=== PATIENT | female | born 1955 | race Caucasian/White ===

== ENCOUNTER → 2024-03-06 | Outpatient (CLI) | payer MEDICARE, OTHER ==
--- NOTE | 2024-03-09 10:24 | CT ---
EXAMINATION TYPE: CT cervical spine wo con DATE OF EXAM: 03/06/2024 COMPARISON: None HISTORY: NECK PAIN CT DLP: 511.9 mGycm CONTRAST: None CT of the cervical spine is performed in the axial plane at 2 mm thick sections. Reconstructed image s in the coronal, and sagittal plane are reviewed on the computer. No acute fractures are evident. Vertebral body alignment is normal. There is disc space narrowing C5-6. Remaining disc heights are preserved. Vertebral body heights are preserved. No spinal canal stenosis is evident Uncovertebral joint hypertrophy is present. This is contributing to moderate bilateral C5-6 foraminal stenosis. Some mild to moderate left foraminal stenosis at C4-5 is present. Mild foraminal narrowing may be present of C3-4. IMPRESSION: 1. No acute osseous abnormality. 2. Foraminal narrowing C5-6 with milder left foraminal narrowing at C3-4 and C4-5. 3. Degenerative disc changes C5-6.
--- NOTE | 2024-03-09 10:31 | CT ---
EXAMINATION TYPE: CT lumbar spine wo con DATE OF EXAM: 03/06/2024 COMPARISON: None HISTORY: LB PAIN CT DLP: 948.6 mGycm CONTRAST: None TECHNIQUE: CT of the lumbar spine is performed on a spiral scan at 3 mm thick sections. Reconstructed images are performed in the coronal and sagittal planes. FINDINGS: Multilevel compression deformities are present. This is greatest at L5 with approximately 7 0% loss of vertebral body height. No posterior wall displacement is evident. Superior endplate compre ssion of approximately 20% of L4 is present. Slightly greater superior endplate compression deformity at L3 has approximately 30% loss of vertebral body height. There is degenerative disc change with vacuum disc phenomenon L2-3 L1-2 T12-L1 and T11-12. T12-L1: No focal disc herniation or significant disc bulge is evident. No spinal canal stenosis or neural foraminal stenosis is present. L1-L2: No focal disc herniation or significant disc bulge is evident. No spinal canal stenosis or n eural foraminal stenosis is present L2-L3: Disc bulge has mild anterior thecal sac compression. Facet hypertrophy and ligamentum flavum l axity is present contributing to some spinal canal narrowing. L3-L4: Mild disc bulges anterior thecal sac contact. Marked facet hypertrophy is contributing to spin al canal stenosis. L4-L5: Facet hypertrophy is present contributing to some mild spinal canal narrowing. Spinal canal na rrowing is present from facet hypertrophy. Bilateral foraminal narrowing is present slightly greater on the left. L5-S1: No focal disc herniation or significant disc bulge is evident. No spinal canal stenosis or n eural foraminal stenosis is present Vertebral alignment appears normal. IMPRESSION: Multilevel compression deformities. No posterior wall displacement is evident. 2. Marked facet hypertrophy present L3-4 and to a lesser degree L4-5. These are contributing to spina l canal stenosis at these levels. 3. Moderate bilateral foraminal stenosis slightly greater on the left at L4-5.
--- NOTE | 2024-03-09 11:18 | MR ---
EXAMINATION TYPE: MR gloria/jacqueline wo con DATE OF EXAM: 03/06/2024 COMPARISON: CT 03/06/2024 HISTORY: Neck and low back pain into both sides, Headaches, Tingling bilat arms CONTRAST: None TECHNIQUE: Multiplanar multiecho imaging on a 3.0 Radha magnet is performed through the cervical spin e. FINDINGS: The craniovertebral junction is normal. Vertebral body alignment is normal. C7-T1: No focal disc herniation or significant disc bulge is evident. No spinal canal stenosis or n eural foraminal stenosis is present. C6-7: No focal disc herniation or significant disc bulge is evident. No spinal canal stenosis or [place] foraminal stenosis is present. C5-6: Mild disc bulges anterior thecal sac contact. No cord contact is evident. No spinal canal steno sis present. Some left foraminal stenosis is present.. C4-5: No focal disc herniation or significant disc bulge is evident. No spinal canal stenosis. Some mild left foraminal narrowing is present. C3-4: No focal disc herniation or significant disc bulge is evident. No spinal canal stenosis and so me mild left foraminal narrowing from uncovertebral joint hypertrophy is present. C2-3: No focal disc herniation or significant disc bulge is evident. No spinal canal stenosis or [place] foraminal stenosis is present. IMPRESSION: 1. Degenerative disc changes with mild disc bulge C5-6. No spinal canal stenosis. 2. Foraminal narrowing present on the left C5-6 and to a lesser degree C4-5 and C3-4. EXAMINATION TYPE: MR gloria/jacqueline wo con DATE OF EXAM: 03/06/2024 COMPARISON: CT 03/06/2024 HISTORY: Neck and low back pain into both sides, Headaches, Tingling bilat arms CONTRAST: 0 mL intravenous . TECHNIQUE: Multiplanar, multisequence images of the lumbar spine were acquired. FINDINGS: Multilevel compression deformities are present. There is severe loss of vertebral body height of L5. No posterior wall displacement is evident. Mild superior endplate compressions of L3 and L4 are prese nt. These appear to have low signal suggesting these are older fractures. The L5 compression deformit y may have an acute component. Correlate with the patient history. Disc heights are preserved. There is loss of disc hydration throughout the lumbar spine. L4-5: Facet hypertrophy is present greater on the left with posterior lateral thecal sac compression. This is contributing to spinal canal stenosis. L3-4: Facet hypertrophy and ligamentum flavum laxity L3-4 contributing to spinal canal stenosis. Mild disc bulge is present. L2-3: Facet hypertrophy and ligamentum flavum laxity and mild spinal canal narrowing L2-3. Minimal di sc bulge is present. L1-2: Some mild disc bulging has moderate anterior thecal sac effacement. Facet hypertrophy and ligam entum flavum laxity are present L1-2 with posterior lateral thecal sac compression. Some canal narrow ing may be present. This is better visualized on the MRI than the CT exam. IMPRESSION: 1. Multilevel compression deformities without posterior wall displacement. L3 and L4 appear to be chr onic. An acute fracture of L5 is not entirely excluded. 2. Multilevel facet hypertrophy with ligamentum flavum laxity causing spinal canal narrowing and sten osis L1-2 through L4-5 discussed above. 3. Some mild disc bulging L1-2 contributes to some spinal canal narrowing at that level.
== END | disposition home or self-care (01) ==
LOC: RADCTMAIN 16:12
PROVIDERS: ATTEND Orthopaedic Surgery
DX: M50.022 Cervical disc disorder at C5-C6 level with myelopathy (principal); M99.71 Connective tissue and disc stenosis of intervertebral foramina of cervical region; M47.16 Other spondylosis with myelopathy, lumbar region; M48.061 Spinal stenosis, lumbar region without neurogenic claudication; M99.73 Connective tissue and disc stenosis of intervertebral foramina of lumbar region; M51.06 Intervertebral disc disorders with myelopathy, lumbar region; M24.28 Disorder of ligament, vertebrae; G95.9 Disease of spinal cord, unspecified; R20.2 Paresthesia of skin; R51.9 Headache, unspecified
CPT/HCPCS: 72125; 72131; 72141; 72148

== ENCOUNTER → 2024-05-02 | Outpatient (CLI) | payer MEDICARE, OTHER | END | disposition home or self-care (01) | LOC: LABWHC1 14:59 | PROVIDERS: ATTEND Orthopaedic Surgery | DX: Z01.812 Encounter for preprocedural laboratory examination (principal); M48.061 Spinal stenosis, lumbar region without neurogenic claudication; M54.16 Radiculopathy, lumbar region; Z22.322 Carrier or suspected carrier of Methicillin resistant Staphylococcus aureus | CPT/HCPCS: 86850; 86900; 86901; 87070 ==

== ENCOUNTER 2024-05-11 10:08 | Day surgery (SDC) | payer MEDICARE, OTHER ==
--- NOTE | 2024-05-11 06:43 | P.HPOR ---
History of Present Illness H&P Date: 05/02/24 .D:Date: 05/02/24 : 02:14pm .T:Title: *[facility] HISTORY AND PHYSICAL Age: 68 year Height: 4'11" Weight: 190 lbs BMI: 38.37 kg/m2 Occupation: Retired VAS: 7 IMPRESSION: It was my pleasure to have seen and examined Rebekah. I reviewed the patient's clinical syndrome, physical findings, and imaging studies during the appointment today. It is my impression that the patient has a diagnosis of. 1. L1-2 stenosis, severe 2. Low back pain Spine Surgery Risk Review Ms. Kang is presenting for evaluation of low back pain. It was my pleasure to have seen and examined Ms. Kang. In our visit today we have had a chance to go over subjective complaints, physical examination findings and treatments including the natural course history without intervention and various interventional options. The patients imaging demonstrates: STUDIES FINDINGS XRAY No new x-rays taken in office today. Please see previous notes. CT Date: 03/06/2024 Location: [facility]:Cervical Contrast:N Date: 03/06/2024 Location: [facility]:Lumbar Contrast:N Cervical: C4-5 and C5-6 spondylosis with stenosis. There is disc collapse and facet arthropathy as well as anterior and posterior osteophytes. Posterior disc osteophyte complex contributes to at least moderate if not severe stenosis in the area. There are no fractures or lesions noted at this time. Lumbar: L1-2 spondylosis, severe with severe stenosis, arthropathy and facet hypertrophy L2-3 Spondylosis severe. L3 superior endplate fracture with vacuum disc. 20% compression. OId L3-4 spondylosis with moderate stenosis. Superior L4 endplate fracture, old, 20% L4-5 Stenosis severe, kissing spine disease. L5 compression fracture advanced with near complete loss of vertebral body height 75% L5-S1 spondylosis, moderate with moderate stenosis, post surgical changed with b/l laminectomy, minimal. No lesions. Fractures as mentioned MRI Date: 03/06/2024 Location: [facility]:Cervical Contrast:N Date: 03/06/2024 Location: [facility]:Lumbar Contrast:N Cervical : C0-1 and C1-2 stable no spondylosis C2-3 minimal spondylosis C3-4 grade I spondylolisthesis noted with central and foraminal stenosis that is moderate C4-5 Grade I spondylolisthesis that is unstable, moderate to severe central stenosis and b/l foraminal stenosis due to HNP and facet arthropathy C5-6 spondylosis, severe with complete disc collapse, central and foraminal stenosis that is moderate to severe. Facet arthropathy. C6-7 moderate spondylosis No fracture, No lesions. Lumbar: L1-2 severe stenosis, severe spondylosis, facet hypertrophy, ligamental hypertrophy, disc collapse. L2-3 moderate stenosis, spondylosis and fracture as mentioned above, old L3-4: Moderate spondylosis, stenosis and fractures as mentioned L4-5: moderate to severe spondylosis, stenosis and fractures as mentioned L5-S1: post surgical changes, moderate spondylosis. XRAY - Re-reviewed with the patient today. Date: 02/20/2024 Location: [facility]: Thoracic, Lumbar, & Pelvis Views: MV (thoracic) / ap/lat/flex/ext (lumbar) / ap (pelvis) This is reviewed and demonstrates L5 burst type fracture AO type A4 likely given the disruption of the anterior and posterior vertebral body as well as the superior and inferior endplates. There is some retropulsion of the central fragment noted. There is local kyphosis due to the collapse of L5 as well. No propagation noted in Xray in to the pedicles, MRI and CT better visualization of this. NO other fractures. Widespread spondylosis of the lumbar and Thoracic spine visualized. On physical exam, Ms. Kang demonstrates: An intense, throbbing pain throughout the low back that radiates down into the bilateral lower extremities with a sharp, shooting quality. She denies any numbness or tingling at this time. She states her low back symptoms worsen after prolonged walking or standing. She states her current symptoms have started to become debilitating. I have explained to the patient that as their condition progresses it will cause further neurological deficits and eventual paralysis. Based on the patients imaging, physical exam, and the rapid progression and disabling nature of their symptoms, at this time I recommend surgery in the form of a: L1-2 decompression and fusion. I discussed the risk and benefits of this procedure at length with Ms. Kang. The patient agreed to considered pursuing the procedure abovementioned. Prior to surgery, she should follow up with her PCP (Cardio, ID, IM etc) for clearance. Questions were invited and answered, and the patient wishes to proceed as outlined below. Currently, I am recommendin.L1-2 decompression and fusion 2.Review of surgical risks and benefits as well as an educational packet on the proposed surgical procedure. Risks: All surgical procedures come with inherent risks, including those related to positioning, anesthesia, intraoperative findings, and postoperative complications. It is important to understand that surgery does not come with any guarantee of a successful outcome as complications and adverse events are always possible. The patient was given a handout in office today discussing the surgical procedure and risks associated with the intervention, both of which were discussed with the patient. These risks include but are not limited to the following: * Experiencing same, different or even worse symptoms in back, neck, arms, or legs compared to before surgery. Requiring further surgery or other forms of treatment presently or at some time in the future at same or other levels of the intended spine surgery. On an extreme but fortunately relatively rare basis severe complication such as blindness, stroke, heart attack, temporary and/or permanent nerve injury, paralysis, coma, or may occur, sometimes without known explanation. Surgical complications may include but are not limited to risk of infection, fluid accumulation in the surgical dissection site, including a seroma or hematoma, that requires additional surgery, wound drainage, bleeding, new numbness or weakness, vision changes/loss, spinal fluid leakage, non-healing and/or infected incision, headaches, difficulty or inability to swallow, hoarseness, hemopneumothorax, pneumothorax, impotence, retrograde ejaculation, vaginal dryness; injury to nerves, spinal cord, blood vessels, lymphatics or other vital organs (i.e., bowel injury, injury to the great vessels); heterotopic bone formation; complications related to the hardware such as screws, rods, cages including misplaced hardware, device failure, instrumentation at the wrong spine level, hardware fracture/breakage, or hardware loosening; vertebral failure of the spinal column above or below the newly placed hardware; retained surgical instrumentations or devices and the need for further surgery. * Medical risks of the planned spine surgery include but are not limited to generalized Infections to the whole body or local areas outside of the surgical site (sepsis), heart attack, bleeding, anaphylaxis, meningitis, seizure, epilepsy, hearing loss, burn casanova, laceration of the head or other areas of the body, bruising, hypersensitivity of the skin, bladder over distension; allergic reaction; shoulder injury related to positioning; fat, blood and air clots to other areas of the body like heart, lungs, brain; failure of internal organs such as lungs, kidneys, liver and excessive bleeding. If blood transfusions are necessary, note that transfusions may cause intolerance reactions such as anaphylaxis or other complex reactions. Despite best efforts, the results of spine surgery might not heal in terms of bone, soft tissues such as skin, fascia, ligaments, and joints. Additionally, in order to achieve best possible results, spine surgery may be carried out beyond the initially planned levels and involve decompression, fusion including insertion of hardware at levels other than the original intended area of surgical interest change some portions of the procedure in order to ensure the best possible outcomes. With spine surgery and spinal fusion, there are different off label uses of instrumentation (devices, implants and hardware) as well as biological substances (bone morphogenic proteins, demineralized bone matrix) as well as using extra bone from allograft sources (i.e. cadaver bone) or autograft (iliac crest bone, ribs, or the spine itself). The patient has been given information about these practices and their inherent risks and benefits. [facility] is an educational center that serves as a training facility for neurosurgical and orthopedic HAND TIER and Nursing students. Physician assistants are medically trained surgical providers who function in the outpatient, inpatient, and operating room setting under the direct supervision of the attending surgeon. [facility] has multiple operating rooms with single and overlapping rooms running daily. They currently function under the required guidelines as produced by the [facility] Finance Committee with regards to the overlapping rooms and will continue to comply with changes to this policy as they occur. The requirements include and are complied with as follows: (1) the critical portions of the overlapping rooms will not occur at the same time, (2) the attending physician will be physically present during the critical portions of the procedure and immediately available during the entire case, and (3) a back-up attending is designated should the primary attending not be immediately available. The patient has had a chance to review all the listed information, has been given print outs detailing this information, and has had all his/her questions answered to their satisfaction. It was my pleasure to have seen and examined Ms. Kang. In our visit today we have had a chance to go over my understanding of our patient's current condition, the natural course history without intervention and various interventional options. Questions were invited and answered, and the patient wishes to proceed as outlined above. I have seen and examined the patient for 25 minutes and we have spent more than 50% of the time in repeat and detailed counseling about the patient's condition, its natural course history with out and as much as can be predicted with surgery and re-review of various surgical treatment options. In conclusion, Ms. Kang requested we proceed with the above suggested surgery and are willing to accept risks and limitations of the suggested surgery as nature of the disease process and our best attempts at treatment for the condition. Thank you again for allowing us to be part of your patient's care. Please don't hesitate to contact me if you have any further questions. FOLLOW UP: Post Procedure PATIENT EDUCATION: Medications Reviewed: YES In our visit today Ms. Kang and I have had a chance to go over my understanding of the patient's current condition, the natural course history without intervention and various interventional options. Questions were invited and answered, and the patient wishes to proceed as outlined above. I will be sure to keep you updated after Ms. Kang returns here for further follow-up. Thank you again for your referral. Please do not hesitate to contact me if you have any further questions. Signed and authenticated by: [facility] [address] [place] [id number] This message is confidential, intended only for the named recipient(s) and may contain information that is privileged or exempt from disclosure under applicable law. If you are not the intended recipient(s), you are notified that the dissemination, distribution or copying of this information is strictly prohibited. If you received this message in error, please notify the sender then delete this message. Past Medical History Past Medical History: Hyperlipidemia, Hypertension, Osteoarthritis (OA), Thyroid Disorder Additional Past Medical History / Comment(s): PT STATES HER PCP CALLED IN PRESCRIPTION FOR UTI THAT SHE WILL START TODAY-NOTIFIED [facility] AT [facility] History of Any Multi-Drug Resistant Organisms: Other MDRO Past Surgical History: Back Surgery, Heart Catheterization, Hysterectomy, Joint Replacement Additional Past Surgical History / Comment(s): BACK SURGERY FOR BONE SPURS, LEFT TOTAL LEFT HIP AND REVISION .right hip replaced Past Anesthesia/Blood Transfusion Reactions: No Reported Reaction Smoking Status: Never smoker - Past Family History Sister(s) Family Medical History: Cancer Additional Family Medical History / Comment(s): LEUKEMIA Medications and Allergies Home Medications Medication Instructions Recorded Confirmed Type Acetaminophen Tab [Tylenol Tab] 1,000 mg PO Q6HR PRN 03/10/15 05/07/24 History Carvedilol [Coreg] 25 mg PO BID 03/10/15 05/07/24 History Ibuprofen [Motrin] 200 - 400 mg PO Q6HR PRN 03/10/15 05/07/24 History Levothyroxine Sodium [Synthroid] 50 mcg PO DAILY 03/10/15 05/07/24 History Multivitamins, Thera [Theragran] 1 each PO DAILY 03/10/15 05/07/24 History HYDROcodone/APAP 7.5-325MG [[place] 1 - 2 each PO Q6H PRN #90 tab 03/20/15 05/07/24 Rx 7.5-325] Aspirin [Adult Low Dose Aspirin EC] 81 mg PO DAILY 05/07/24 05/07/24 History Atorvastatin Calcium 40 mg PO DAILY 05/07/24 05/07/24 History Gabapentin 300 mg PO BID 05/07/24 05/07/24 History Allergies Allergy/AdvReac Type Severity Reaction Status Date / Time No Known Allergies Allergy Verified 05/07/24 11:38 Physical Examination Osteopathic Statement: *. No significant issues noted on an osteopathic struc tural exam other than those noted in the History and Physical/Consult. Assessment and Plan (1) Lumbar stenosis with neurogenic claudication Status: Acute Code(s): M48.062 - SPINAL STENOSIS, LUMBAR REGION WITH NEUROGENIC CLAUDICATION SNOMED Code(s): 40630057 (2) Lumbar spondylosis Status: Acute Code(s): M47.816 - SPONDYLOSIS W/O MYELOPATHY OR RADICULOPATHY, LUMBAR REGION SNOMED Code(s): 563121329 (3) Stenosis of lateral recess of lumbar spine Status: Acute Code(s): M48.061 - SPINAL STENOSIS, LUMBAR REGION WITHOUT NEUROGENIC CARITO SNOMED Code(s): 694917195 (4) Low back pain Status: Acute Code(s): M54.50 - LOW BACK PAIN, UNSPECIFIED SNOMED Code(s): 615304243 (5) Lower extremity weakness Status: Acute Code(s): R29.898 - OTH SYMPTOMS AND SIGNS INVOLVING THE MUSCULOSKELETAL SYSTEM SNOMED Code(s): 713801649
[~2024-05-11 10:08] MED LIST: LIDOCAINE 1% (10MG/ML) FOR IV START INTRADERMA PRN; MIDAZOLAM 2 MG/2 ML VIAL IV PRN; ONDANSETRON 4 MG/2 ML VIAL IVP PRN; TRANEXAMIC 1,000 MG/100ML-NACL 1,000 MG in SALINE 1 100ML.BAG IVPB PRN
[2024-05-11] MEDS: GABAPENTIN 300 MG CAP PO PRN (10:29)
[2024-05-11] MEDS: ACETAMINOPHEN TAB 500 MG TAB PO PRN (10:29)
[2024-05-11] MEDS: ONDANSETRON 4 MG/2 ML VIAL IVP ONE (10:39)
[2024-05-11] MEDS: IV FLUID CONTINUATION 1,000 ML IV ONE ×3 (10:46→16:11)
[2024-05-11 10:48] LABS: Prothrombin Time 11.3 sec (10.0-12.5)
[2024-05-11] MEDS: fentaNYL (PF) 50 MCG/ML 2 ML AMP IVP PRN (11:43)
[2024-05-11] MEDS ORDERED: SUCCINYLCHOLINE CHLORIDE 200 MG/10 ML VIAL IV ONE (12:41)
[2024-05-11] MEDS ORDERED: PROPOFOL 10 MG/ML 20 ML VIAL IV ONE (12:41)
[2024-05-11] MEDS ORDERED: GLYCOPYRROLATE 0.2 MG/ML 2 ML VIAL ONE (12:41)
[2024-05-11] MEDS ORDERED: LIDOCAINE 1% INJ 10MG/ML (20 ML MDV) ONE (12:41)
[2024-05-11] MEDS ORDERED: MIDAZOLAM 2 MG/2 ML VIAL ONE (12:41)
[2024-05-11] MEDS ORDERED: TRANEXAMIC 1,000 MG/100ML-NACL PREMIX BAG ONE (12:41)
[2024-05-11] MEDS ORDERED: KETAMINE HCL IN 0.9 % NACL 50 MG/5 ML SYRINGE ONE (12:41)
[2024-05-11] MEDS ORDERED: NEOSTIGMINE 1 MG/ML 10 ML VIAL ONE (12:41)
[2024-05-11] MEDS ORDERED: fentaNYL (PF) 50 MCG/ML 2 ML AMP ONE (12:41)
[2024-05-11] MEDS ORDERED: HYDROmorphone (PF) 1 MG/ML ONE (12:41)
[2024-05-11] MEDS ORDERED: ROCURONIUM 10 MG/ML (5 ML VIAL) IV ONE (12:41)
[2024-05-11] MEDS: GELATIN SPONGE,ABSORBABLE 1 GM POWDER TOPICAL ONE (13:31)
[2024-05-11] MEDS: THROMBIN (BOVINE) 5,000 UNIT VIAL TOPICAL ONE (13:31)
[2024-05-11] MEDS: ceFAZolin 3,000 MG in SODIUM CHLORIDE 0.9% IRRIGATIO 3,000 ML IRRIGATION ONE (14:28)
[2024-05-11] MEDS: GENTAMICIN 80 MG in SODIUM CHLORIDE 0.9% IRRIGATIO 3,000 ML IRRIGATION ONE (14:28)
[2024-05-11] MEDS: VANCOMYCIN 1,000 MG VIAL MISCELLANE ONE (15:15)
[2024-05-11] MEDS ORDERED: MAGNESIUM HYDROXIDE 2,400 MG/30 ML CUP PO PRN (15:59)
--- NOTE | 2024-05-11 16:22 | FL ---
EXAMINATION TYPE: FL guidance operating room, XR lumbar spine 2 or 3V Intraoperative/procedural fluor oscopic services were provided. L1-L2 decompression and fusion. 1.43 mins fluoro. [address] Maliha mcgarry DAP=[phone]
[2024-05-11] MEDS: HYDROmorphone 0.5 MG/0.5 ML SYRINGE IVP PRN ×2 (16:31→23:29)
[2024-05-11] MEDS: ACETAMINOPHEN TAB 325 MG TAB PO SCH (19:20)
[2024-05-11] MEDS: LACTATED RINGERS 1,000 ML IV SCH (19:22)
[2024-05-11] MEDS: DEXAMETHASONE SOD PHOSPHATE 4 MG/ML 1 ML VIAL IV ONE (19:22)
[2024-05-11] MEDS: CYCLOBENZAPRINE 5 MG TAB PO PRN (20:22)
[2024-05-11] MEDS: HYDROcodone/APAP 7.5-325MG 1 EACH TAB PO PRN (20:22)
--- NOTE | 2024-05-11 20:44 | P.OP ---
Date of Procedure: 05/11/24 Preoperative Diagnosis: Current Active Problems Lumbar stenosis with neurogenic claudication (Acute) Lumbar spondylosis (Acute) Stenosis of lateral recess of lumbar spine (Acute) Low back pain (Acute) Lower extremity weakness (Acute) Postoperative Diagnosis: Current Active Problems Lumbar stenosis with neurogenic claudication (Acute) Lumbar spondylosis (Acute) Stenosis of lateral recess of lumbar spine (Acute) Low back pain (Acute) Lower extremity weakness (Acute) Procedure(s) Performed: L1-2 POSTEROLATERAL INSTRUMENTED FUSION L1-2 INTERBODY FUSION L1-2 INSTRUMENTATION L1-2 BILATERAL LAMINECTOMY COMPLETE FACETECTOMY AND FORAMINOTOMY FOR NEURAL DECOMPRESSION REMOVAL OF LOOSE BODY FROM EPIDURAL SPACE USE OF IONM ALL SCREWS TESTING > 20mA Implants: -CARINA EVEREST RODS AND SCREWS, CEMENTED -ALLOCELL, ARTHROCELL, DBM, AUTOGRAFT Anesthesia: FRANCISCAA Surgeon: Cisco Dumont Lubrication Technician #1: Norm Mcqueen (WAS PRESENT AND ASSISTED WITH ALL ASPECTS OF THE CASE FROM POSITION TO DRESSING PLACEMENT) Estimated Blood Loss (ml): 350 IV fluids (ml): 1,200 Urine output (ml): 250 Pathology: none sent Condition: stable Disposition: PACU Indications for Procedure: Ms. Kang is presenting for evaluation of low back pain. It was my pleasure to have seen and examined Ms. Kang. In our visit today we have had a chance to go over subjective complaints, physical examination findings and treatments including the natural course history without intervention and various interventional options. The patients imaging demonstrates: STUDIES FINDINGS XRAY No new x-rays taken in office today. Please see previous notes. CT Date: 03/06/2024 Location: [facility] Hospital Region:Cervical Contrast:N Date: 03/06/2024 Location: [facility] Hospital Region:Lumbar Contrast:N Cervical: C4-5 and C5-6 spondylosis with stenosis. There is disc collapse and facet arthropathy as well as anterior and posterior osteophytes. Posterior disc osteophyte complex contributes to at least moderate if not severe stenosis in the area. There are no fractures or lesions noted at this time. Lumbar: L1-2 spondylosis, severe with severe stenosis, arthropathy and facet hypertrophy L2-3 Spondylosis severe. L3 superior endplate fracture with vacuum disc. 20% compression. OId L3-4 spondylosis with moderate stenosis. Superior L4 endplate fracture, old, 20% L4-5 Stenosis severe, kissing spine disease. L5 compression fracture advanced with near complete loss of vertebral body height 75% L5-S1 spondylosis, moderate with moderate stenosis, post surgical changed with b/l laminectomy, minimal. No lesions. Fractures as mentioned MRI Date: 03/06/2024 Location: [facility] Hospital Region:Cervical Contrast:N Date: 03/06/2024 Location: [facility] Hospital Region:Lumbar Contrast:N Cervical : C0-1 and C1-2 stable no spondylosis C2-3 minimal spondylosis C3-4 grade I spondylolisthesis noted with central and foraminal stenosis that is moderate C4-5 Grade I spondylolisthesis that is unstable, moderate to severe central stenosis and b/l foraminal stenosis due to HNP and facet arthropathy C5-6 spondylosis, severe with complete disc collapse, central and foraminal stenosis that is moderate to severe. Facet arthropathy. C6-7 moderate spondylosis No fracture, No lesions. Lumbar: L1-2 severe stenosis, severe spondylosis, facet hypertrophy, ligamental hypertrophy, disc collapse. L2-3 moderate stenosis, spondylosis and fracture as mentioned above, old L3-4: Moderate spondylosis, stenosis and fractures as mentioned L4-5: moderate to severe spondylosis, stenosis and fractures as mentioned L5-S1: post surgical changes, moderate spondylosis. XRAY - Re-reviewed with the patient today. Date: 02/20/2024 Location: [facility] Region: Thoracic, Lumbar, & Pelvis Views: MV (thoracic) / ap/lat/flex/ext (lumbar) / ap (pelvis) This is reviewed and demonstrates L5 burst type fracture AO type A4 likely given the disruption of the anterior and posterior vertebral body as well as the superior and inferior endplates. There is some retropulsion of the central fragment noted. There is local kyphosis due to the collapse of L5 as well. No propagation noted in Xray in to the pedicles, MRI and CT better visualization of this. NO other fractures. Widespread spondylosis of the lumbar and Thoracic spine visualized. On physical exam, Ms. Kang demonstrates: An intense, throbbing pain throughout the low back that radiates down into the bilateral lower extremities with a sharp, shooting quality. She denies any numbness or tingling at this time. She states her low back symptoms worsen after prolonged walking or standing. She states her current symptoms have started to become debilitating. I have explained to the patient that as their condition progresses it will cause further neurological deficits and eventual paralysis. Based on the patients imaging, physical exam, and the rapid progression and disabling nature of their symptoms, at this time I recommend surgery in the form of a: L1-2 decompression and fusion. I discussed the risk and benefits of this procedure at length with Ms. Kang. The patient agreed to considered pursuing the procedure abovementioned. Prior to surgery, she should follow up with her PCP (Cardio, ID, IM etc) for clearance. Questions were invited and answered, and the patient wishes to proceed as outlined below. Currently, I am recommendin.L1-2 decompression and fusion Description of Procedure: L1-2 OPEN PLIBF The patient was seen and examined in the preoperative area. All preoperative protocols were followed. Informed consent was obtained, risks and benefits of the procedure were discussed at length. Risks including bleeding infection damage to the surrounding tissue and risk of reoperation were discussed with the patient. Risk of anesthesia up to and including was discussed with the patient. These are outlined in the risk review. They were willing to accept these risks and all the risks of surgery. The patient was given a weight-based dose of antibiotics in the form of 2 g Ancef. The patient was seen and evaluated by the anesthesia team who deemed them fit for surgery. The site was marked, the patient was willing to proceed with the procedure. The patient was transferred to the operative suite by the Department of anesthesia. They were then drifted off to sleep by the department anesthesia and GETA was performed. The patient tolerated this well. Mancini catheter was placed by nursing staff, a-traumatically. Once confirmation of lines and ventilation the patient was transferred to a prone Wade table very carefully. All bony prominences including wrists, elbows, axilla, chest, hips, and thighs, and feet were padded very well. Special attention was paid to the genitalia, and these were padded accordingly. SCDs were placed on bilateral lower extremities and were connected. Arms were well padded and placed on arm boards up and out in the 90/90 position. Once in position, again we confirmed good ventilation capabilities and that lines were running appropriately. The patients Lumbar spine was then exposed. 1010s were placed outlining the incision site. Standard alcohol was used to clean the incision site and allowed to dry. C-arm was used to needle localize the pedicles at L3-5 and bio-bartolo the patient and confirm level for incision which was marked with a skin marker. Operative briefing was performed with all teams and everyone in agreement to proceed. The patient was then prepped and draped in a normal sterile fashion. Timeout was then performed, and all parties agreed with the procedure to be perf ormed. Midline skin incision was made over the previously bio-marked area and dissection taken down over the SP of T12-L3. L1-2 was taken out over facet joints and TPs and a penfield 4 used to bartolo the L1 pedicle. Lateral image used to confirm levels. Once confirmed, screws were placed b/l at pedicles from L1-2 using Lateral C arm and free hand technique. Lina was used to create a fixed wing pilot hole, gear shift passed then a ball tip feeler to confirm within the pedicles. Screw was measured and placed. Once screws were placed they were confirmed to be in good position using AP and Lateral fluoroscopy. The wound was then irrigated. Screws were tested and all tested above 20 mA. We then proceeded to decompression and cage placement. Attention was then turned to interbody fusion at L1-2. Bilateral laminectomy, complete facetectomy and foraminotomy performed at L1-2 using high speed lina and Kerrison rongeur. The ligamentum was removed and the dural sac decompressed. There was on the right side under the facet joints, a mass was found which was a loose body likely a facet cyst that had solidified into a bony mass. This was removed from the lateral recess decompressing the dura in this area. There was exhuberent ligamentum and scar tissue in the foramen b/l as well as lateral recess and epidural space. Exiting and traversing roots visualized and decompressed. Neural elements were then protected, and disc space accessed with an osteotome. Sequential shaving then done under lateral imaging and complete discectomy performed using juancarlos, pituitary and curette. Once good bleeding endplates accomplished and good height temple with trials, a combination of autograft, allograft and synthetic placed anterior in the disc space. The cage was then selected and impacted into place under lateral imaging. The cage was expanded. After expansion, the cage was tested and was not stable and did not engage the endplates. The cage was then collapse and repositioned and re-expanded. It still did not engage the endplates and so the cage was removed as this was the biggest cage any [employer] company has available. So, instead, the disc space was packed tight with autograft and allograft. The Area was irrigated copiously, and meticulous hemostasis achieved. Rods were then sized and selected and placed into screws b/l. Set screws locked these in place. This was accomplished. Set screws were then all placed and final tightened. TPs were then decorticated with a high speed lina. The wound was irrigated with 3L ancef irrigation, 3L gentamicin irrigation 1L betadine and 2L Irricept and 3L NSS. Surgicel was placed over the dura. Autograft, allograft, DBM then placed in the posterolateral gutters and impacted into place. Deep drain placed and secured to the skin. 2 g Vancomycin powder placed in the wound bed. Final images confirmed good placement of hardware and good reduction of listhesis as well as temple of height and lordosis. Facia was then closed with #1 PDS. Deep subq closed with 0 Vicryl. Superficial subq closed with 2-0 vicryl and skin with madhavi. Wound edges approximated very well. Wound was then cleaned with alcohol and dried. Wounds dressed with adaptic, 4x4, ABD and medipore tape. The patient was then transferred off the table back to their hospital bed a- traumatically. Drain continued to hold suction. They were extubated by the department of anesthesia. They were then transferred to PACU in stable condition having tolerated the procedure with no complications.
[2024-05-11] MEDS: GABAPENTIN 300 MG CAP PO SCH (21:19)
--- NOTE | 2024-05-12 06:56 | P.PN ---
Subjective Progress Note Date: 05/12/24 Principal diagnosis: L1-L2 stenosis; severe; mechanical low back pain Patient was seen at bedside this morning lying in the semirecumbent position on 4 S. with dressing present and drain present over lumbar spine. There is moderate amount of output in drain. Patient says she is having fair amount of back pain currently, however, it is controlled fairly well with medication. Patient says she is looking forward to working with therapy later today. Mancini is currently in place. Patient denies any chest pain, fever, nausea, vomiting, change in vision, loss of bowel control. Objective - Vital Signs Vital signs: Vital Signs Temp 98.5 F 05/12/24 02:00 Pulse 50 L 05/12/24 02:00 Resp 16 05/12/24 02:00 BP 123/69 05/12/24 02:00 Pulse Ox 96 05/12/24 02:00 FiO2 Intake & Output 05/11/24 05/11/24 05/12/24 06:59 18:59 06:59 Intake Total 2252 Output Total 575 550 Balance 1677 -550 Weight 84.6 kg 84.6 kg Intake: IV 2252 Output: Drainage 50 Lower Back 50 Urine 225 500 Estimated Blood Loss 350 Other: Voiding Method Indwelling Catheter Indwelling Catheter - Exam Dressing and drain in place over lumbar spine. Moderate serosanguineous output in drain. Maintain drain to full suction at this time. Maintain dressing at this time. Assess dressing daily. Sensation is equal, symmetric, by intact throughout the upper and lower extremities on exam. There is a fair amount of tenderness to palpation near incision over lumbar spine. Some mild tenderness to palpation in the paravertebral regions. Nontender to palpation throughout rest of exam. Patient does have full range of motion throughout bilateral upper extremities on exam. There is limited range of motion in the bilateral hips and knees in flexion's extension secondary referred pain and stiffness to the low back. 5/5 in all major motor groups in bilateral upper extremities. 4/5 in all major motor groups in bilateral lower extremities. Negative Homans bilaterally. Radial pulse intact, 2+ bilaterally. Cap refill under 3 seconds in digits of upper extremities. Assessment and Plan Assessment: L1-L2 stenosis; severe; mechanical low back pain -Postop day 1 status post L1-2 decompression and fusion Plan: . L1-L2 stenosis; severe; mechanical low back pain -surgery performed yesterday, Zeb, 05/11/2024L1-2 decompression and fusion. Patient stable at bedside this morning with dressing and drain in place over lumbar spine. Dressing appears to be clean, dry, intact. Maintain drain at full suction at this time. Assess dressing and drain daily. PT/OT daily. Weightbearing as tolerated with walker and assistance as needed. Pain medication as needed. We will continue to follow patient during stay in hospital. Plan for discharge home with home care versus rehab within the next several days. 2. Appreciate medical management 3. Pain management -gabapentin; Flexeril; Wayne 4. GI prophylaxis -senna; milk of mag 5. DVT prophylaxis -mechanical 6. PT/OT -weightbearing as tolerated with walker and assistance as needed 7. Encourage incentive spirometer use 8. Plan for discharge home with home care versus rehab within the next several days. Time with Patient: Less than 30
[2024-05-12 09:20] LABS: HCT 32.2 % (37.2-46.3); HGB 10.5 g/dL (12.0-15.0); MCH 29.2 pg (27.0-32.0); MCHC 32.6 g/dL (32.0-37.0); MCV 89.4 FL (80.0-97.0); Mean Platelet Volume 10.6 FL (9.5-12.2); NRBC Per 100 WBC 0 X 10*3/uL (0.00-0.01); Neutrophils % (A) 66.4 %; Platelet Count 124 X 10*3/uL (140-440); RDW 14.4 % (11.5-14.5)
[2024-05-12 09:21] LABS: Basophils # (A) 0.03 X 10*3/uL (0.00-0.10); Basophils % (A) 0.4 %; Eosinophils # (A) 0.15 X 10*3/uL (0.04-0.35); Eosinophils % (A) 1.9 %; Lymphocytes # (A) 1.61 X 10*3/uL (0.90-5.00); Lymphocytes % (A) 20.4 %; Monocytes # (A) 0.84 X 10*3/uL (0.20-1.00); Monocytes % (A) 10.6 %; Neutrophils # (A) 5.25 X 10*3/uL (1.80-7.70)
--- NOTE | 2024-05-12 09:41 | P.CONS ---
History of Present Illness - Reason for Consult Consult date: 05/12/24 Medical Management Requesting physician: Cisco Dumont - History of Present Illness History of Presenting Illness: Patient is a very pleasant 68-year-old female with a past medical history of CAD with stent, hypertension, hyperlipidemia, hypothyroidism, and osteoarthritis wi th chronic back pain. She is admitted under orthospine surgery team status post lumbar laminectomy, decompression, and fusion. Surgical procedure was completed by Dr. Dumont secondary to patient is lumbar stenosis with neurogenic claudication and chronic back pain. We were consulted for medical management throughout hospitalization. Patient was seen and fully evaluated at bedside this morning. She reports currently back pain is mild to moderate but controlled on current medication regimen. Mancini catheter is in place. Patient denies having any postoperative nausea or vomiting denies experiencing any headache, lightheadedness, dizziness, chest pain, palpitations, shortness of breath, or experiencing any numbness/tingling/weakness in her extremities. Movement and sensation intact lo wer extremities. Postsurgical dressing to lumbar spine is clean, dry, and intact. Hemovac drain in place. Review of systems: Pertinent positives and negatives as discussed in HPI, a complete review of systems was performed and all other systems are negative. Physical exam: Vital signs reviewed and stable. General: Nontoxic, no distress and appears stated age. Derm: Skin warm and dry, normal coloration for ethnicity. Dressing in place to the lower lumbar spine and is clean, dry, and intact with no shadowing. Hemovac drain in place. Head: Atraumatic, normocephalic and symmetric. Eyes: EOMs intact, no lid lag, and anicteric sclera Mouth: no lip lesions, mucus membranes moist Cardiovascular: regular rate and rhythm with normal S1S2, no murmur, positive posterior tibial pulses bilaterally, and cap refill < 2 seconds. Lungs: Respirations even, regular, and unlabored on room air. Lungs CTA bilaterally, no rhonchi, no rales, no wheezing, and no accessory muscle usage. Abdominal: soft, nontender to palpation, no guarding, no appreciable organomegaly Ext: ROM intact. No gross muscle atrophy, no edema, no contractures Neuro: Speech clear, face symmetrical and CN II-XII grossly intact with no noted focal neuro deficits Psych: Alert and oriented to person, place, time, and situation. Appropriate and pleasant affect. Assessment and Plan of Care: Status post lumbar laminectomy, decompression, and fusion -Management per primary admitting orthospine surgery team including DVT prophylaxis, pain management, wound/dressing/drain management, advancement of activity, and PT/OT. -Currently DVT prophylaxis with DOROTHY osorio and SCDs. Postoperative bradycardia -Likely secondary to anesthesia. Patient asymptomatic and denies having any cardiac complaints, dizziness, lightheadedness, or any other concerns at this time. -Parameters placed on carvedilol to hold for heart rate less than 60. -EKG to be completed. Bicytopenia -Bicytopenia with acute postoperative blood loss anemia with hemoglobin of 10.5 and platelet count of 124. -Stable and expected finding. Will continue to monitor with repeat morning labs. No need for transfusion or further intervention at this time. Hypertension -Continue daily medication regimen with carvedilol 25 mg twice daily. Hypothyroidism -Continue daily medication regimen with levothyroxine 50 mcg daily. Hyperlipidemia -Continue daily medication regimen with atorvastatin 40 mg daily. Data and imaging reviewed: -Postoperative labs reviewed showing mild postoperative blood loss anemia with hemoglobin of 10.5 and thrombocytopenia with platelet count of 124. -Vital signs reviewed and stable. Blood pressure 127/84, Thank you for allowing us to participate in the care of this pleasant patient. Do not hesitate to contact us with questions. Someone can be reached from the [facility] hospitalist group all hours of the day at [phone] or via [email or web address]. Patient was seen independently by Nurse Practitioner. This document was prepared using [employer] dictation software. Please allow for errors in ion exchange operator while rare they do occur. I reviewed the documentation as provided by the AGA above, who is the original author of this note. I agree with the documented assessment and plan, with the following changes: none Past Medical History Past Medical History: Hyperlipidemia, Hypertension, Osteoarthritis (OA), Thyroid Disorder Additional Past Medical History / Comment(s): PT STATES HER PCP CALLED IN PRESCRIPTION FOR UTI THAT SHE WILL START TODAY-NOTIFIED VIOLET AT [facility] History of Any Multi-Drug Resistant Organisms: Other MDRO Past Surgical History: Back Surgery, Heart Catheterization, Hysterectomy, Joint Replacement Additional Past Surgical History / Comment(s): BACK SURGERY FOR BONE SPURS, LEFT TOTAL LEFT HIP AND REVISION .right hip replaced, L1-L2 decompression fusion Past Anesthesia/Blood Transfusion Reactions: No Reported Reaction Past Psychological History: Anxiety Additional Psychological History / Comment(s): due to surgery Smoking Status: Never smoker Past Alcohol Use History: Occasional Past Drug Use History: None Reported - Past Family History Sister(s) Family Medical History: Cancer Additional Family Medical History / Comment(s): LEUKEMIA Medications and Allergies Home Medications Medication Instructions Recorded Confirmed Type Acetaminophen Tab [Tylenol Tab] 1,000 mg PO Q6HR PRN 03/10/15 05/07/24 History Carvedilol [Coreg] 25 mg PO BID 03/10/15 05/07/24 History Ibuprofen [Motrin] 200 - 400 mg PO Q6HR PRN 03/10/15 05/07/24 History Levothyroxine Sodium [Synthroid] 50 mcg PO DAILY 03/10/15 05/07/24 History Multivitamins, Thera [Theragran] 1 each PO DAILY 03/10/15 05/07/24 History HYDROcodone/APAP 7.5-325MG [[employer] 1 - 2 each PO Q6H PRN #90 tab 03/20/15 05/07/24 Rx 7.5-325] Aspirin [Adult Low Dose Aspirin EC] 81 mg PO DAILY 05/07/24 05/07/24 History Atorvastatin Calcium 40 mg PO DAILY 05/07/24 05/07/24 History Gabapentin 300 mg PO BID 05/07/24 05/07/24 History Allergies Allergy/AdvReac Type Severity Reaction Status Date / Time No Known Allergies Allergy Verified 05/07/24 11:38 Physical Exam Osteopathic Statement: *. No significant issues noted on an osteopathic structural exam other than those noted in the History and Physical/Consult. Vitals: Vital Signs Temp Pulse Resp BP Pulse Ox 05/12/24 06:57 99.6 F 45 L 18 127/84 98 05/12/24 02:00 98.5 F 50 L 16 123/69 96 05/11/24 20:00 97.8 F 57 L 16 129/68 98 05/11/24 17:45 86 18 125/72 96 05/11/24 17:30 85 17 119/66 97 05/11/24 17:15 87 16 139/67 96 05/11/24 17:00 85 15 123/79 100 05/11/24 16:48 81 12 143/72 100 05/11/24 16:33 83 12 131/75 98 05/11/24 16:18 81 12 142/83 98 05/11/24 16:02 98.9 F 80 16 160/86 100 05/11/24 11:54 80 16 95 05/11/24 10:34 97.8 F 58 L 18 153/94 100 Intake and Output 05/11/24 05/12/24 05/12/24 22:59 06:59 14:59 Intake Total 500 Output Total 625 500 Balance -125 -500 Intake: IV 500 Output: Drainage 50 Lower Back 50 Urine 225 500 Estimated Blood Loss 350 Other: Voiding Method Indwelling Catheter Indwelling Catheter Weight 84.6 kg Results CBC & Chem 7: 05/12/24 06:04 05/13/24 04:12 Labs: Abnormal Lab Results - Last 24 Hours (Table) 05/12/24 Range/Units 06:04 RBC 3.60 L (4.10-5.20) X 10*6/uL Hgb 10.5 L (12.0-15.0) g/dL Hct 32.2 L (37.2-46.3) % Plt Count 124 L (140-440) X 10*3/uL
[2024-05-12] MEDS: ATORVASTATIN 40 MG TAB PO SCH (10:27)
[2024-05-12] MEDS: LEVOTHYROXINE 50 MCG TAB PO SCH (10:27)
[2024-05-12] MEDS: carvediloL 12.5 MG TAB PO SCH (10:27)
--- NOTE | 2024-05-12 12:33 | CT ---
EXAMINATION TYPE: CT lumbar spine wo con CT DLP: 1209.6 mGycm, Automated exposure control for dose reduction was used. DATE OF EXAM: 05/12/2024 8:36 AM COMPARISON: CT lumbar spine 03/06/2024. CLINICAL INDICATION:Female, 68 years old with history of s/p L1-L2 decompr fusion; PHH, s/p L1-L2 dec ompresion fusion TECHNIQUE: CT of the lumbar spine was performed without contrast. Multiplanar soft tissue and bone windows were obtained and reviewed. . FINDINGS: Generalized osseous demineralization. No evidence of destructive lesion. Severe compression deformity L5, moderate compression deformities with loss of height along the super ior endplates of L4 and L3, appear similar to previous. There has been placement of bilateral pedicle screws and posterior fixation rods, as well as bilateral vertebral augmentation cement within the L1 and L2 vertebral bodies. There are accompanying laminectomy changes and a drainage catheter at the s ite. Hardware appears intact and normally aligned. No adverse osseous finding. Multilevel lumbar spondylosis with varying degrees of stenosis, far as previously described. Included soft tissues demonstrates probable small right renal cysts and a punctate calcification in t he mid to lower pole on the right. No hydronephrosis is seen. Mild/moderate calcification of the aort a without evidence of AAA. Moderate stool and gas in the partially visualized colon. IMPRESSION: 1. Status post posterior fusion L1 and L2 with accompanying laminectomies and vertebral augmentation cement. 2. No evidence of complication, or significant change from previous CT.
[2024-05-12 19:10] LABS: T4, Free (Free Thyroxine) 1.39 ng/dL (0.78-2.19)
[2024-05-13] MEDS: SENNOSIDES-DOCUSATE SODIUM 1 EACH TAB PO PRN (08:06)
--- NOTE | 2024-05-13 08:45 | P.PN ---
Subjective Progress Note Date: 05/13/24 Principal diagnosis: L1-L2 stenosis; severe; mechanical low back pain Patient was seen at bedside this morning sitting up in chair eating breakfast. Patient says she did do very well yesterday and walked around the room a little bit. Patient says she does live at home alone, but says both of her sons will be able to help her out. Patient says she has been progressing daily since surgery. Patient says pain has been tolerable with medication. Patient denies any chest pain, fever, nausea, vomiting, change in vision, loss of bowel control. Objective - Vital Signs Vital signs: Vital Signs Temp 97.2 F L 05/13/24 06:58 Pulse 52 L 05/13/24 06:58 Resp 19 05/13/24 06:58 BP 106/79 05/13/24 06:58 Pulse Ox 90 L 05/13/24 06:58 FiO2 Intake & Output 05/12/24 05/13/24 05/13/24 18:59 06:59 18:59 Output Total 550 100 Balance -550 -100 Output: Drainage 150 100 Lower Back 150 100 Urine 400 Uretheral (Mancini) 400 Other: Voiding Method Indwelling Catheter Toilet # Voids 1 1 - Exam Dressing and drain in place over lumbar spine. Moderate serosanguineous output in drain. Maintain drain to full suction at this time. Dressing removed over incision. Incision appears to be healing well. Negative for any active drainage. Mahogany appear to be well aligned and intact. Sensation is equal, sy mmetric, by intact throughout the upper and lower extremities on exam. There is a fair amount of tenderness to palpation near incision over lumbar spine. Some mild tenderness to palpation in the paravertebral regions. Nontender to palpation throughout rest of exam. Patient does have full range of motion throughout bilateral upper extremities on exam. There is limited range of motion in the bilateral hips and knees in flexion's extension secondary referred pain and stiffness to the low back. 5/5 in all major motor groups in bilateral upper extremities. 4/5 in all major motor groups in bilateral lower extremities. Negative Homans bilaterally. Radial pulse intact, 2+ bilaterally. Cap refill under 3 seconds in digits of upper extremities. - Labs CBC & Chem 7: 05/12/24 06:04 Labs: Abnormal Lab Results - Last 24 Hours (Table) 05/12/24 05/12/24 Range/Units 06:04 06:04 RBC 3.60 L (4.10-5.20) X 10*6/uL Hgb 10.5 L (12.0-15.0) g/dL Hct 32.2 L (37.2-46.3) % Plt Count 124 L (140-440) X 10*3/uL TSH 0.355 L (0.465-4.680) mIU/L Assessment and Plan Assessment: L1-L2 stenosis; severe; mechanical low back pain -Postop day 2 status post L1-2 decompression and fusion Plan: . L1-L2 stenosis; severe; mechanical low back pain -surgery performed yesterday, 05/11/2024L1-2 decompression and fusion. Patient stable at bedside this morning with dressing and drain in place over lumbar spine. Dressing changed at bedside this morning. Maintain drain at full suction at this time. Assess dressing and drain daily. Plan for drain to be removed tomorrow. PT/OT daily. Weightbearing as tolerated with walker and assistance as needed. Pain medication as needed. We will continue to follow patient during stay in hospital. Plan for discharge home with home care versus rehab tomorrow versus Tuesday. 2. Appreciate medical management 3. Pain management -gabapentin; Flexeril; Calipatria 4. GI prophylaxis -senna; milk of mag 5. DVT prophylaxis -mechanical 6. PT/OT -weightbearing as tolerated with walker and assistance as needed 7. Encourage incentive spirometer use 8. Plan for discharge home with home care versus rehab tomorrow versus Tuesday Time with Patient: Less than 30
[2024-05-13 10:27] LABS: BUN/Creat Ratio 15.25 Ratio (12.00-20.00); Blood Urea Nitrogen 12.2 mg/dL (9.0-27.0); Chloride 105 mmol/L (96-109); Glucose 140 mg/dL (70-110); Magnesium 1.5 mg/dL (1.5-2.4); Potassium 4.3 mmol/L (3.5-5.5); Sodium 139 mmol/L (135-145)
[2024-05-13 10:28] LABS: ALT 12 U/L (8-44); AST 26 U/L (13-35); Albumin 3.7 g/dL (3.8-4.9); Albumin/Globulin Ratio 1.54 Ratio (1.60-3.17); Alkaline Phosphatase 137 U/L (41-126); Calcium 8.8 mg/dL (8.7-10.3); Carbon Dioxide 21.5 mmol/L (21.6-31.8); Globulin 2.4 g/dL (1.6-3.3); Total Bilirubin 0.5 mg/dL (0.3-1.2); Total Protein 6.1 g/dL (6.2-8.2)
[2024-05-13] MEDS: HYDROmorphone 1 MG/ML 1 ML SYRINGE IVP PRN (10:38)
--- NOTE | 2024-05-13 15:50 | P.PN ---
Subjective Progress Note Date: 05/13/24 Hospital course: Patient is a very pleasant 68-year-old female with a past medical history of CAD with stent, hypertension, hyperlipidemia, hypothyroidism, and osteoarthritis with chronic back pain. She is admitted under orthospine surgery team status post lumbar laminectomy, decompression, and fusion. Surgical procedure was completed by Dr. Dumont secondary to patient is lumbar stenosis with neurogenic claudication and chronic back pain. We were consulted for medical management throughout hospitalization. Physical exam: Patient seen and fully evaluated at bedside this morning. She reports mild to moderate postoperative pain currently controlled. Hemovac drain remains in place. Patient continues to deny having any headache, lightheadedness, dizziness, chest pain, palpitations, shortness of breath, or experiencing any numbness/tingling/weakness in her extremities. Mancini catheter was removed and p atient urinating without reported difficulties. Vital signs reviewed and stable. General: Nontoxic, no distress and appears stated age. Derm: Skin warm and dry, normal coloration for ethnicity. Dressing in place to the lower lumbar spine and is clean, dry, and intact with no shadowing. Hemovac drain in place. Head: Atraumatic, normocephalic and symmetric. Eyes: EOMs intact, no lid lag, and anicteric sclera Mouth: no lip lesions, mucus membranes moist Cardiovascular: regular rate and rhythm with normal S1S2, no murmur, positive posterior tibial pulses bilaterally, and cap refill < 2 seconds. Lungs: Respirations even, regular, and unlabored on room air. Lungs CTA bilaterally, no rhonchi, no rales, no wheezing, and no accessory muscle usage. Abdominal: soft, nontender to palpation, no guarding, no appreciable organomegaly Ext: ROM intact. No gross muscle atrophy, no edema, no contractures Neuro: Speech clear, face symmetrical and CN II-XII grossly intact with no noted focal neuro deficits Psych: Alert and oriented to person, place, time, and situation. Appropriate and pleasant affect. Assessment and Plan of Care: Status post lumbar laminectomy, decompression, and fusion -Management per primary admitting orthospine surgery team including DVT prophylaxis, pain management, wound/dressing/drain management, advancement of activity, and PT/OT. -Currently DVT prophylaxis with DOROTHY hose and SCDs. Asymptomatic postoperative bradycardia, resolved. Bicytopenia -Bicytopenia with acute postoperative blood loss anemia with hemoglobin of 10.5 and platelet count of 124. -Stable and expected finding. Will continue to monitor with repeat morning labs. No need for transfusion or further intervention at this time. Elevated liver enzyme -Alk phos elevated at 137. Believed to be reactive secondary to lumbar surgical procedure. Need for intervention, will continue to monitor. Hypertension -Continue daily medication regimen with carvedilol 25 mg twice daily. Hypothyroidism -Continue daily medication regimen with levothyroxine 50 mcg daily. Hyperlipidemia -Continue daily medication regimen with atorvastatin 40 mg daily. Data and imaging reviewed: -Labs reviewed. BMP showing mild hypocarbia with bicarb of 21.5 and elevated anion gap of 12.50. Blood glucose was 140. Magnesium low at 1.5. And liver profile showing elevated alkaline phosphatase of 137. TSH was low at 0.355, however free T4 is normal at 1.39. -EKG showing sinus tachycardia with frequent PVCs at 104 bpm, inverted T wave or ST abnormalities upon personal review and interpretation. -Vital signs reviewed and stable. Blood pressure 106/79, heart rate 52, respiratory rate 19, temp 97.2 F, and SpO2 of 90% on room air. Thank you for allowing us to participate in the care of this pleasant patient. Do not hesitate to contact us with questions. Someone can be reached from the [facility] hospitalist group all hours of the day at [phone] or via perfect serve. Patient was seen independently by Nurse Practitioner. This document was prepared using [employer] dictation software. Please allow for errors in tire center supervisor while rare they do occur. I reviewed the documentation as provided by the AGA above, who is the original author of this note. I agree with the documented assessment and plan, with the following changes: none Objective - Vital Signs Vital signs: Vital Signs Temp 97.2 F L 05/13/24 06:58 Pulse 52 L 05/13/24 06:58 Resp 19 05/13/24 06:58 BP 106/79 05/13/24 06:58 Pulse Ox 90 L 05/13/24 06:58 FiO2 Intake & Output 05/12/24 05/13/24 05/13/24 18:59 06:59 18:59 Output Total 550 100 Balance -550 -100 Output: Drainage 150 100 Lower Back 150 100 Urine 400 Uretheral (Mancini) 400 Other: Voiding Method Indwelling Catheter Toilet # Voids 1 1 - Labs CBC & Chem 7: 05/12/24 06:04 05/13/24 04:12 Labs: Abnormal Lab Results - Last 24 Hours (Table) 05/12/24 05/12/24 Range/Units 06:04 06:04 RBC 3.60 L (4.10-5.20) X 10*6/uL Hgb 10.5 L (12.0-15.0) g/dL Hct 32.2 L (37.2-46.3) % Plt Count 124 L (140-440) X 10*3/uL TSH 0.355 L (0.465-4.680) mIU/L
[2024-05-13] MEDS: MAGNESIUM SULFATE-D5W PMX 1 GM in DEXTROSE/WATER 1 100ML.BAG IVPB SCH (16:44)
--- NOTE | 2024-05-14 07:57 | P.PN ---
Subjective Progress Note Date: 05/14/24 Principal diagnosis: 1. L1-2 stenosis, severe 2. Low back pain Patient seen and examined this morning. Patient is resting comfortably in bed. She does report that her pain is controlled on current regimen. Patient reports improvement of her low back pain since the procedure. Surgical incision to the lumbar spine, dressing is clean dry and intact. Dressing has been reinforced due to report of Hemovac falling out. Patient request to shower today prior to discharge. Patient states she is looking forward to working with physical therapy today. Patient is progressing well towards discharge. She does report that her 2 sons will be alternating staying with her at home to assist with her care. No acute concerns at this time. Objective - Vital Signs Vital signs: Vital Signs Temp 98.4 F 05/14/24 02:00 Pulse 60 05/14/24 02:00 Resp 16 05/13/24 20:00 BP 110/83 05/14/24 02:00 Pulse Ox 94 L 05/13/24 20:00 FiO2 Intake & Output 05/13/24 05/14/24 05/14/24 18:59 06:59 18:59 Output Total 50 Balance -50 Output: Drainage 50 Lower Back 50 Other: Voiding Method Toilet # Voids 3 2 - Exam Physical Examination General: The patient is awake and alert, in no acute distress Skin: Skin is warm and dry with no obvious rashes or lesions. Surgical incision to the lumbar spine, dressing is clean dry and intact. Eye: Pupils are equal, round and reactive to light, extra-ocular movements are intact; there is normal conjunctiva bilaterally. Neck: The neck is supple, there is no tenderness and ROM intact. Gastrointestinal: Soft, non-distended, non-tender abdomen. Back: There is no tenderness to palpation in the midline, paralumbar, parathoracic or buttocks region. There is no obvious deformity . Musculoskeletal: ROM limited secondary to pain and stiffness from surgical procedure. Muscle strength in all major muscle groups of bilateral upper extremities 5/5, bilateral lower extremities 4/5. Neurological: CN 2-12 intact. There are no obvious motor or sensory deficits. Movement and coordination equal and intact. Sensory exam to light touch intact C5-T1 and intact from L2-S1. Reflexes 2/4 in bilateral upper and lower extremities. Negative Hoffmans, babinski, and clonus signs. Psychiatric: Cooperative, appropriate mood & affect, normal judgment. - Labs CBC & Chem 7: 05/12/24 06:04 05/13/24 04:12 Labs: Abnormal Lab Results - Last 24 Hours (Table) 05/13/24 Range/Units 04:12 Carbon Dioxide 21.5 L (21.6-31.8) mmol/L Anion Gap 12.50 H (4.00-12.00) mmol/L Glucose 140 H (70-110) mg/dL Alkaline Phosphatase 137 H (41-126) U/L Total Protein 6.1 L (6.2-8.2) g/dL Albumin 3.7 L (3.8-4.9) g/dL Albumin/Globulin Ratio 1.54 L (1.60-3.17) Ratio Assessment and Plan Assessment: Postop day 3: L1-L2 decompression and fusion 1. L1-2 stenosis, severe 2. Low back pain Plan: -Appreciate senior staff consultant and team management. -Activity: Ambulate QID, OOB all meals, up and about, limit lifting bending t wisting to less than 5 lbs. Use walker or cane if needed for stability. -Daily PT/OT, increase ambulation strength and balance. -Brace when up and about, not needed in bed or chair -Pain control: Adequate at this time -Meds: reviewed -GI ppx: senna, Miralax -DVT PPX: Heparin -Hygiene: Shower today, Remove current dressing and allow soapy water to run over incision. Pat dry and apply new gauze dressing. Meticulous cleaning after BMs away from the incision site -Encourage IS 10x/hr -Dispo: Anticipate discharge home today with homecare. *I reviewed and discussed this case with my attending Dr. Dumont, whom has reviewed this chart and films and is in agreement with assessment and plan of care as outlined above. I have personally seen and examined the patient, performed the documentation and the assessment and plan as written. Number of minutes spent on the visit: 20m.
[2024-05-14 08:46] LABS: ALT 10 U/L (8-44); AST 23 U/L (13-35); Albumin 3.6 g/dL (3.8-4.9); Albumin/Globulin Ratio 1.44 Ratio (1.60-3.17); Alkaline Phosphatase 137 U/L (41-126); BUN/Creat Ratio 22.86 Ratio (12.00-20.00); Calcium 8.3 mg/dL (8.7-10.3); Carbon Dioxide 21.3 mmol/L (21.6-31.8); Chloride 103 mmol/L (96-109); Globulin 2.5 g/dL (1.6-3.3); Glucose 136 mg/dL (70-110); Potassium 4.5 mmol/L (3.5-5.5); Sodium 136 mmol/L (135-145); Total Bilirubin 0.3 mg/dL (0.3-1.2); Total Protein 6.1 g/dL (6.2-8.2)
[2024-05-14] MEDS: HEPARIN SODIUM,PORCINE 5,000 UNIT/ML 1 ML VIAL SQ SCH (08:46)
[2024-05-14] MEDS: oxyCODONE-APAP 5-325MG 1 EACH TAB PO PRN (08:46)
[2024-05-14 09:26] LABS: HCT 35.8 % (37.2-46.3); HGB 11.3 g/dL (12.0-15.0); MCH 28.7 pg (27.0-32.0); MCHC 31.6 g/dL (32.0-37.0); MCV 90.9 FL (80.0-97.0); Mean Platelet Volume 10.3 FL (9.5-12.2); NRBC Per 100 WBC 0 X 10*3/uL (0.00-0.01); Platelet Count 193 X 10*3/uL (140-440); RBC 3.94 X 10*6/uL (4.10-5.20); RDW 14.4 % (11.5-14.5); WBC 11.65 X 10*3/uL (4.50-10.00)
--- NOTE | 2024-05-14 13:13 | P.DS ---
Providers Date of admission: 05/11/24 Expected date of discharge: 05/14/24 Attending physician: Cisco Dumont DO Consults: 05/11/24 15:59 Consult Physician Routine Consulting Provider: Cezar Amanda Reason/Comments: medical management s/p L1-L2 decompr fusion Do you want consulting provider notified?: Yes Primary care physician: Peter Elissa [place] Hospital Course: Hospital Course: The patient was evaluated preoperatively and found to have the diagnosis of Lumbar spondylosis with stenosis. They underwent appropriate preoperative care and were willing to undergo the intended procedure. They underwent a successful L1-L2 decompression and fusion were recovered appropriately and sent to the floor. While on the floor they worked with physical therapy, occupational therapy and nursing to enhance their recovery experience. Their pain was well controlled through their stay and they were started on appropriate medications, DVT ppx modalities, activity and dietary needs. Daily labs were monitored closely, and transfusions were only used when necessary. Medicine as well as other consulting services have made their input and have helped with our team approach and multidisciplinary care. PT milestones have been met and passed and they have made the recommendation of Home with home care for this patient and treating providers agree with this care path. The patient will be discharged home with appropriate medications, instructions and follow-up information and in stable condition. Patient Condition at Discharge: Good Plan - Discharge Summary Discharge Rx Participant: No New Discharge Prescriptions: New cefaDROXiL [Duricef] 500 mg PO Q12HR #10 cap HYDROcodone/APAP 7.5-325MG [[place] 7.5-325] 1 tab PO Q4-6H PRN #40 tab PRN Reason: Pain Cyclobenzaprine [Flexeril] 5 mg PO TID PRN #40 tablet PRN Reason: Muscle Spasm Gabapentin 300 mg PO BID 3 Days #60 cap Sennosides/Docusate Sodium [Senna Plus 8.6-50 mg Tablet] 1 each PO DAILY PRN #20 tab PRN Reason: Constipation No Action Ibuprofen [Motrin] 200 - 400 mg PO Q6HR PRN PRN Reason: Pain Acetaminophen Tab [Tylenol Tab] 1,000 mg PO Q6HR PRN PRN Reason: Pain Multivitamins, Thera [Theragran] 1 each PO DAILY Levothyroxine Sodium [Synthroid] 50 mcg PO DAILY Carvedilol [Coreg] 25 mg PO BID HYDROcodone/APAP 7.5-325MG [[place] 7.5-325] 1 - 2 each PO Q6H PRN #90 tab PRN Reason: Pain Gabapentin 300 mg PO BID Atorvastatin Calcium 40 mg PO DAILY Aspirin [Adult Low Dose Aspirin EC] 81 mg PO DAILY Discharge Medication List Acetaminophen Tab [Tylenol Tab] 1,000 mg PO Q6HR PRN 03/10/15 [History] Carvedilol [Coreg] 25 mg PO BID 03/10/15 [History] Ibuprofen [Motrin] 200 - 400 mg PO Q6HR PRN 03/10/15 [History] Levothyroxine Sodium [Synthroid] 50 mcg PO DAILY 03/10/15 [History] Multivitamins, Thera [Theragran] 1 each PO DAILY 03/10/15 [History] HYDROcodone/APAP 7.5-325MG [[place] 7.5-325] 1 - 2 each PO Q6H PRN #90 tab 03/20/15 [Rx] Aspirin [Adult Low Dose Aspirin EC] 81 mg PO DAILY 05/07/24 [History] Atorvastatin Calcium 40 mg PO DAILY 05/07/24 [History] Gabapentin 300 mg PO BID 05/07/24 [History] Cyclobenzaprine [Flexeril] 5 mg PO TID PRN #40 tablet 05/14/24 [Rx] Gabapentin 300 mg PO BID 3 Days #60 cap 05/14/24 [Rx] HYDROcodone/APAP 7.5-325MG [[place] 7.5-325] 1 tab PO Q4-6H PRN #40 tab 05/14/24 [Rx] Sennosides/Docusate Sodium [Senna Plus 8.6-50 mg Tablet] 1 each PO DAILY PRN #20 tab 05/14/24 [Rx] cefaDROXiL [Duricef] 500 mg PO Q12HR #10 cap 05/14/24 [Rx] Follow up Appointment(s)/Referral(s): Peter Bowers MD [Primary Care Provider] - 1 Week Cisco Dumont DO [Doctor of Osteopathic Medicine] - 2 Weeks Activity/Diet/Wound Care/Special Instructions: Spine Discharge and Recovery Instructions Date of Surgery: 05/11/2024 Diagnosis: Lumbar spondylosis with stenosis Procedure: L1-L2 decompression and fusion Medications: See medication list All medication refills should be obtained through your primary care doctor or your clinic spine surgeon. Please discuss prescription refills at your follow up appointment. Do not call the hospital for medication refills. Activity: Encourage ambulation with assist of walker, Up and about 6-8x daily PT/OT daily work on balance, strength and mobility Up in chair with all meals Shower daily Brace: Use brace when up and about, do not wear in bed or shower Dressing: Leave your dressing in place for a total of 3 days post operatively. Then you may remove your dressing and leave open to air. Keep the area clean and if not able to keep area clean, then cover with sterile gauze and tape. Showering: You may shower 3 days after your procedure allowing soap and water to run over incision. Do not scrub. Do not soak. Blot dry. Follow up: Please confirm a follow up appointment with your surgeon 2 weeks post operatively. Please make an appointment to follow up with your PCP in 1-2 weeks after surgery for evaluation `3 phase, 3-week plan POST OP WEEKS 1-3 1. Lifting/carrying/pushing/pulling limited to less than 5 pounds. 2. Do not sit for longer than 15 minutes at one time. Get up and walk around. Prolonged sitting is NOT advised. If you lay down, see if you can tolerate laying down on you front (belly side) 3. Walk for periods of 15 minutes = 1 mile but no longer; do it multiple times times each day. 4. Ice your low back after activity. POST OP WEEKS 3-6 1. Lifting limited to less than 20 pounds. 2. Do not sit for longer than 30 minutes at a time. Frequently change positions. Use a sit-to stand workstation or take frequent breaks from sitting if you have returned to work. 3. Walk for 30 minutes each day. If possible, do these three or more times a day POST OP WEEKS 6+ At your 6-week appointment we will give you a physical therapy referral to focus on a core stabilization and strengthening program. You should also work on leg & buttock strengthening, hamstring & quadriceps stretching, and continue a low impact aerobic activity program such as swimming, walking, or riding a stationary bicycle. During the initial 6 weeks after your surgery, you are at the highest risk of re-injuring your spine. You should generally avoid BLTs (bending, lifting and twisting combination motions) and follow the above guidelines to reduce the chance of reinjury. You can anticipate post op appointments in our office at approximately 3 weeks and 6 weeks after your surgery. INCISION CARE: If your incision is not draining you do NOT need to cover it with a dressing. Keep your incision clean, dry and intact. In most cases, we apply skin glue, madhavi or sutures to the incision at the time of surgery. This will be like a crust or have the appearance of a scab and will fall off in time on its own. The stitches or madhavi need to be removed at 3 weeks post op appointment. You may begin to shower 3 days after surgery (this allows the glue to brian well). However, please avoid scrubbing the incision site or peeling off any of the skin glue. This will ensure optimal healing of your incision. Also, during this time avoid soaking the incision area in water - this includes swimming pools, hot tubs or baths. No ointments, lotions or oils on the incision until your surgeon allows. Leave madhavi, sutures or glue in place. Neurological dysfunction that comes on suddenly can also be a sign of a stroke. Below some common symptoms of a stroke are listed: B - balance difficulty such as sudden onset walking or leaning to one side - NEW E - eye problem such as sudden double vision or trouble seeing on one side - NEW F - Facial weakness or numbness on one side - NEW A - Arm or leg weakness or numbness on one side - NEW S - Slurred speech or difficulty with word finding - NEW T - Time is BRAIN! Call 911 as soon as you recognize these symptoms Diet: Consume a regular diet rich in vegetables and lean protein such as chicken or fish. You should consume in a ratio of approximately 20% fats|40% carbohydrates|40%protein. Vegetables, sweet potatoes, brown rice or quinoa are examples of good carbohydrates. Chips, white bread, cookies and sweets/sugar are examples of bad carbohydrates. Limit your bad carbs, go wild with good carbs. "Life's Simple 7" Guidelines as per [place] [employer] These will help you reclaim your life after surgery and coater helper in your recovery, keeping in mind your restrictions. (1) Get Active. Physical activity can help people lose weight, control high blood pressure and cholesterol, feel emotionally better, and sleep better. (2) Control Cholesterol. Avoid a diet high in saturated fat, trans fat, & cholesterol. Limit whole milk & cream, ice cream, butter, egg yolks, processed meats (like sausage and hot dogs), and fatty meats. Choose healthy foods that are low in saturated fat, trans fat and cholesterol which include: Fruits and vegetables, fiber rich grain products (like whole grain pasta and brown rice), lean meat such as chicken, fish, nuts, seeds, and legumes. (3) Eat Better. Eat small portions. Shop at the grocery with a list and do not stray from it. Tips for a healthy diet include: Limit sodium intake to less than 1500mg daily, avoid prepackaged, processed, and fast foods, choose a diet rich in fruits, vegetables, and whole grain, high fiber foods, and limit saturated & cholesterol in your diet. (4) Manage Blood Pressure. If you have high blood pressure, you should have a cuff at home so that you can check your blood pressure regularly. Be sure you have a good cuff. An arm one is generally better than a wrist one. Bring the cuff to a doctor's appointment to validate that the measurements that your cuff are taking are accurate. Take your blood pressure twice daily when you are sitting down and relaxing. Record the numbers in a log and bring this log with you to your doctors' appointments. (5) Lose Weight if your BMI is above 25. A healthy BMI is between 19-25. To calculate Your BMI, you may use a Standard BMI Calculator on the NIH BMI website: <www.nhlbi.nih.gov/guidelines/obesity/BMI/bmicalc.htm>. Weigh oneself daily. If you are overweight, set a goal to lose weight. A pound a week loss if needed is a good target. (6) Reduce Blood Sugar. Limit foods and liquids with "added sugars." (Added sugars include sucrose, fructose, glucose, maltose, dextrose, high fructose corn syrup, corn syrup, concentrated fruit juice and honey). (7) Stop Smoking. If you smoke, quitting smoking is one of the best things that you can do for your health. Smoking increases your risk of heart attack, stroke, and peripheral vascular disease, which is a build-up of plaque in your arteries. Please discard all the cigarettes and lighters in your house. Have a plan for what you will do when you have the urge to smoke. Direct and second- hand smoke shortens your life as well as the lives of your family, friends and others around you. For your health and the health of those around you, please consider quitting! Proper Bending Body Mechanics: Maintain a wide stance with one foot slightly in front of the other. Keep your back straight. Bend utilizing the strength in your hips and knees. Do not bend at the waist. Maintain the lifted object at your waist-level close to your body. Avoid lifting weight that causes immediately pain or pain anywhere in the body afterwards. Smoking/Nicotine If there was ever one thing that you could do to increase your overall health, decrease your risk of cardiovascular problems by about 39% the second you make the choice, it is to STOP SMOKING. Your body's most instant gratification is the second you stop smoking. We have all heard the studies, read the articles but it is true, smoking is extremely bad for your overall health, and moreover it is detrimental to your bone health. Nicotine, IN ANY FORM, kills bone cells, prevents your body from healing fractures, and significantly prolongs healing after surgery. In spine surgery specifically, it increases your risk of not healing your bones to create a fusion and increases your risk of having a revision surgery due to this up to 60%. I know it is hard. I know it feels impossible. But there are ways. Take control of your life. We are here to help you through it. And when you are ready, ask us and we can direct you to help if you desire. Use the START Plan to Quit Smoking (please visit the Helpguide.org website listed below for more information): S = Set a quit date. Choose a date within the next 2 weeks, so you have enough time to prepare without losing your motivation to quit. If you mainly smoke at work, quit on the weekend, so you have a few days to adjust to the change. T = Tell family, friends, and co-workers that you plan to quit. Let your friends and family in on your plan to quit smoking and tell them you need their support and encouragement to stop. Look for a quit amy who wants to stop smoking as well. You can help each other get through the rough times. A = Anticipate and plan for the challenges you'll face while quitting. Most people who begin smoking again do so within the first 3 months. You can help yourself make it through by preparing ahead for common challenges, such as nicotine withdrawal and cigarette cravings. R = Remove cigarettes and other tobacco products from your home, car, and work. Throw away all your cigarettes (no emergency pack!), lighters, ashtrays, and matches. Wash your clothes and freshen up anything that smells like smoke. Shampoo your car, clean your drapes and carpet, and steam your furniture. T = Talk to your doctor about getting help to quit. Your doctor can prescribe medication to help with withdrawal and suggest other alternatives. If you can't see a doctor, you can get many products over the counter at your local pharmacy or grocery store, including the nicotine patch, nicotine lozenges, and nicotine gum. Resources for Quitting Smoking: <https://www.[place].gov/documents/[facility]/Quit_Tobacco_Resources_for_patients_313 480_7.pdf> Supplementation: Take recommended dosages of Vitamin D and Calcium to help fortify your bones and help them to heal. See your health maintenance packet for dosages and recommended levels. DVT/VTE prophylaxis: You will be given compression stockings from the hospital. Wear these daily for the first two weeks after surgery. You may take them off at night. You may be prescribed a medication to help thin your blood. Take this as directed. If you are not prescribed this medication, early and frequent ambulation has been shown to be the best prophylaxis to deep vein thrombosis and sequelae related to this event. Discharge Disposition: HOME WITH HOME HEALTH SERVICES
[2024-05-14 14:03] VITALS: BP 121/83; PULSE 89; RESP 15; TEMP 98.9
--- NOTE | 2024-05-14 14:48 | P.PN ---
Subjective Progress Note Date: 05/14/24 Hospital course: Patient is a very pleasant 68-year-old female with a past medical history of CAD with stent, hypertension, hyperlipidemia, hypothyroidism, and osteoarthritis with chronic back pain. She is admitted under orthospine surgery team status post lumbar laminectomy, decompression, and fusion. Surgical procedure was completed by Dr. Dumont secondary to patient is lumbar stenosis with neurogenic claudication and chronic back pain. We were consulted for medical management throughout hospitalization. Physical exam: Patient seen and fully evaluated at bedside this morning. She reports mild postoperative pain i with current medication regimen s currently controlled. Hemovac drain was removed this morning. Patient continues to deny having any headache, lightheadedness, dizziness, chest pain, palpitations, shortness of breath, or experiencing any numbness/tingling/weakness in her extremities. Vital signs reviewed and stable. General: Nontoxic, no distress and appears stated age. Derm: Skin warm and dry, normal coloration for ethnicity. Dressing in place to the lower lumbar spine and is clean, dry, and intact with no shadowing. Head: Atraumatic, normocephalic and symmetric. Eyes: EOMs intact, no lid lag, and anicteric sclera Mouth: no lip lesions, mucus membranes moist Cardiovascular: regular rate and rhythm with normal S1S2, no murmur, positive posterior tibial pulses bilaterally, and cap refill < 2 seconds. Lungs: Respirations even, regular, and unlabored on room air. Lungs CTA bilaterally, no rhonchi, no rales, no wheezing, and no accessory muscle usage. Abdominal: soft, nontender to palpation, no guarding, no appreciable organomegaly Ext: ROM intact. No gross muscle atrophy, no edema, no contractures Neuro: Speech clear, face symmetrical and CN II-XII grossly intact with no noted focal neuro deficits Psych: Alert and oriented to person, place, time, and situation. Appropriate and pleasant affect. Assessment and Plan of Care: Status post lumbar laminectomy, decompression, and fusion -Management per primary admitting orthospine surgery team including DVT prophylaxis, pain management, wound/dressing/drain management, advancement of activity, and PT/OT. -Currently DVT prophylaxis with DOROTHY hose and SCDs. Asymptomatic postoperative bradycardia, resolved. Bicytopenia -Hemoglobin improving to 11.3 and thrombocytopenia resolved with platelet count of 193 this morning. -Stable and expected finding. No need for transfusion or further intervention at this time. Elevated liver enzyme -Alk phos elevated at 137. Believed to be reactive secondary to lumbar surgical procedure. Need for intervention, will continue to monitor. Hypertension -Continue daily medication regimen with carvedilol 25 mg twice daily. Hypothyroidism -Continue daily medication regimen with levothyroxine 50 mcg daily. Hyperlipidemia -Continue daily medication regimen with atorvastatin 40 mg daily. Data and imaging reviewed: -Labs reviewed. CBC showing leukocytosis with WBC count of 11.65 and acute blood loss anemia with stable and improving hemoglobin of 11.3. PT unremarkable. Magnesium normal findings at 2.0. Liver Profile showed elevated alkaline phos of 137. -Vital signs reviewed and stable. Blood pressure 115/55, heart rate 96, respiratory rate 21, temp 98.8 F, and SpO2 of 94% on room air. Patient is cleared from medical perspective for discharge once cleared by primary admitting orthopedic surgery team. Thank you for allowing us to participate in the care of this pleasant patient. Do not hesitate to contact us with questions. Someone can be reached from the [facility] hospitalist group all hours of the day at [phone] or via [facility]. Patient was seen independently by Nurse Practitioner. This document was prepared using [employer] dictation software. Please allow for errors in quality assurance consultant while rare they do occur. . I reviewed the documentation as provided by the AGA above, who is the original author of this note. I agree with the documented assessment and plan, with the following changes: none Objective - Vital Signs Vital signs: Vital Signs Temp 98.8 F 05/14/24 07:51 Pulse 96 05/14/24 07:51 Resp 21 05/14/24 07:51 BP 115/55 05/14/24 07:51 Pulse Ox 94 L 05/14/24 07:51 FiO2 Intake & Output 05/13/24 05/14/24 05/14/24 18:59 06:59 18:59 Output Total 50 Balance -50 Output: Drainage 50 Lower Back 50 Other: Voiding Method Toilet # Voids 3 2 - Labs CBC & Chem 7: 05/14/24 05:13 05/14/24 05:13 Labs: Abnormal Lab Results - Last 24 Hours (Table) 05/13/24 Range/Units 04:12 Carbon Dioxide 21.5 L (21.6-31.8) mmol/L Anion Gap 12.50 H (4.00-12.00) mmol/L Glucose 140 H (70-110) mg/dL Alkaline Phosphatase 137 H (41-126) U/L Total Protein 6.1 L (6.2-8.2) g/dL Albumin 3.7 L (3.8-4.9) g/dL Albumin/Globulin Ratio 1.54 L (1.60-3.17) Ratio
== END 2024-05-14 14:49 | disposition home health service (06) ==
LOC: OR 10:08 → 4SSUR 16:18 → OR 05-14 14:49
PROVIDERS: ATTEND Orthopaedic Surgery
DX: M48.062 Spinal stenosis, lumbar region with neurogenic claudication (principal); M47.26 Other spondylosis with radiculopathy, lumbar region; M51.16 Intervertebral disc disorders with radiculopathy, lumbar region; M96.1 Postlaminectomy syndrome, not elsewhere classified; R53.1 Weakness; G89.29 Other chronic pain; R74.8 Abnormal levels of other serum enzymes; D69.6 Thrombocytopenia, unspecified; D62 Acute posthemorrhagic anemia; I49.3 Ventricular premature depolarization; D72.829 Elevated white blood cell count, unspecified; I25.10 Atherosclerotic heart disease of native coronary artery without angina pectoris; Z95.5 Presence of coronary angioplasty implant and graft; E03.9 Hypothyroidism, unspecified; E78.5 Hyperlipidemia, unspecified; I10 Essential (primary) hypertension; Z79.890 Hormone replacement therapy; Z79.899 Other long term (current) drug therapy; Z79.82 Long term (current) use of aspirin; Z79.51 Long term (current) use of inhaled steroids
CPT/HCPCS: 93005; 97116; 97530; 97162; 84439; 80053; 84443; 83735; 85025; 85027; 85610; 72100; 72131; 22633; 22853; 20930; 20936; J3370; J1580; J0690 ×3; J2405; J3010; J1170 ×3

== ENCOUNTER 2024-06-22 10:30 | Day surgery (SDC) | payer MEDICARE, OTHER ==
[2024-06-22] MEDS ORDERED: LACTATED RINGERS 1,000 ML BAG ONE (13:42)
[2024-06-22] MEDS ORDERED: SODIUM CHLORIDE 0.9% IRRIG 3,000 ML BAG IRRIGATION ONE (13:42)
[2024-06-22] MEDS ORDERED: GENTAMICIN 80 MG/2 ML (MDV) VIAL ONE (13:42)
[2024-06-22] MEDS ORDERED: ceFAZolin 1,000 MG VIAL ONE (13:42)
[2024-06-22] MEDS ORDERED: DEXAMETHASONE SOD PHOSPHATE 4 MG/ML 1 ML VIAL ONE (13:46)
[2024-06-22] MEDS ORDERED: ONDANSETRON 4 MG/2 ML VIAL ONE (13:46)
[2024-06-22] MEDS ORDERED: GLYCOPYRROLATE 0.2 MG/ML 2 ML VIAL ONE (14:51)
[2024-06-22] MEDS ORDERED: LIDOCAINE 1% INJ 10MG/ML (20 ML MDV) ONE (14:51)
[2024-06-22] MEDS ORDERED: MIDAZOLAM 2 MG/2 ML VIAL ONE (14:51)
[2024-06-22] MEDS ORDERED: SUCCINYLCHOLINE CHLORIDE 200 MG/10 ML VIAL IV ONE (14:51)
[2024-06-22] MEDS ORDERED: ROCURONIUM 10 MG/ML (5 ML VIAL) IV ONE (14:51)
[2024-06-22] MEDS ORDERED: NEOSTIGMINE 1 MG/ML 10 ML VIAL ONE (14:51)
[2024-06-22] MEDS ORDERED: PROPOFOL 10 MG/ML 20 ML VIAL IV ONE (14:51)
[2024-06-22] MEDS ORDERED: fentaNYL (PF) 50 MCG/ML 2 ML AMP ONE ×2 (14:51→16:31)
[2024-06-22] MEDS ORDERED: HYDROmorphone 0.5 MG/0.5 ML SYRINGE ONE ×4 (15:55→17:06)
--- NOTE | 2024-09-04 07:55 | P.OP ---
Date of Procedure: 09/04/24 Description of Procedure: [facility] OPERATIVE NOTE PATIENT: Rebekah Kang AGE/SEX: 68 , F : 1955 DATE: Jun 22, 2024 4:00?PM Approved DATE OF SERVICE: 06/22/24 PREOPERATIVE DIAGNOSIS: 1. Lumbar stitch abscess 2. Lumbar wound dehiscence POST OPERATIVE DIAGNOSIS: 1. Lumbar stitch abscess 2. Lumbar wound dehiscence PROCEDURE: 1. Incision and drainage with excisional wound revision lumbar 10x7x3 cm 1. Skin knife used to excise skin and soft tissue as well as stitch tract 2. Irrigant used to wash wound IMPLANTS: -NA ANESTHESIA: GETA SURGEON: CHAU LEAL DO RUBY SOFTWARE DEVELOPER: Tahira Newell NP EBL: 20 cc URINE: 0 cc FLUIDS: 1100 cc COMPLICATIONS: None DISPOSITION: Stable to PACU INDICATIONS FOR PROCEDURE: Spine Surgery Clinical and Risk Review Rebekah Kang is a 68 yo female presenting for evaluation of lumbar wound dehiscence and stitch abscess after L1-2 decompression and fusion. It was my pleasure to have seen and examined Rebekah. She has done very well after surgery, but she has had some irritation of her incision at the level of her waistband which has caused a stitch abscess to form. There has been minimal drainage over the past few days but the wound is not healing well in this small area and so she has elected to have it fixed. In our visit today we have had a chance to go over subjective complaints, physical examination findings and treatments including the natural course history without intervention and various interventional options. The patient's imaging demonstrates the following findings: Stable PO findings of L1-2 decompression and fusion. On a physical exam, Rebekah demonstrates the following findings: Small quarter sized area of stitch abscess with non-healing area at the level of her beltline. I have explained to the patient that as their condition progresses it will cause further neurological deficits and eventual paralysis. Based on the patients imaging, physical exam, and the rapid progression and disabling nature of their symptoms, at this time I recommend surgery in the form of a: Lumbar wound revision with incision and drainage. . I discussed the risk and benefits of this procedure at length with Rebekah. The patient and her family at bedside agreed to consider pursuing the procedure above mentioned. Prior to surgery, they should follow up with her PCP (Cardio, ID, IM etc) for clearance. Questions were invited and answered, and the patient wishes to proceed as outlined below. Currently, I am recommendin. Lumbar wound revision with incision and drainge 2. Obtain appropriate presurgical workup and clearances as discussed with the patient. 3. Review of surgical risks and benefits as well as an educational packet on the proposed surgical procedure. Risks: All surgical procedures come with inherent risks, including those related to positioning, anesthesia, intraoperative findings, and postoperative complications. It is important to understand that surgery does not come with any guarantee of a successful outcome as complications and adverse events are always possible. The patient was given a handout in the office today discussing the surgical procedure and risks associated with the intervention, both of which were discussed with the patient. These risks include but are not limited to the following: Experiencing same, different or even worse symptoms in back, neck, arms, or legs compared to before surgery. Requiring further surgery or other forms of treatment presently or at some time in the future at same or other levels of the intended spine surgery. On an extreme but fortunately relatively rare basis severe complications such as blindness, stroke, heart attack, temporary and/or permanent nerve injury, paralysis, coma, or may occur, sometimes without known explanation. Surgical complications may include but are not limited to risk of infection, fluid accumulation in the surgical dissection site, including a seroma or hematoma, that requires additional surgery, wound drainage, bleeding, new numbness or weakness, vision changes/loss, spinal fluid leakage, non-healing and/or infected incision, headaches, difficulty or inability to swallow, hoarseness, hemopneumothorax, pneumothorax, impotence, retrograde ejaculation, vaginal dryness; injury to nerves, spinal cord, blood vessels, lymphatics or other vital organs (i.e., bowel injury, injury to the great vessels); heterotopic bone formation; complications related to the hardware such as screws, rods, cages including misplaced hardware, device failure, instrumentation at the wrong spine level, hardware fracture/breakage, or hardware loosening; vertebral failure of the spinal column above or below the newly placed hardware; retained surgical instrumentations or devices and the need for further surgery. Medical risks of the planned spine surgery include but are not limited to generalized Infections to the whole body or local areas outside of the surgical site (sepsis), heart attack, bleeding, anaphylaxis, meningitis, seizure, epilepsy, hearing loss, burn casanova, laceration of the head or other areas of the body, bruising, hypersensitivity of the skin, bladder over distension; allergic reaction; shoulder injury related to positioning; fat, blood and air clots to other areas of the body like heart, lungs, brain; failure of internal organs such as lungs, kidneys, liver and excessive bleeding. If blood transfusions are necessary, note that transfusions may cause intolerance reactions such as anaphylaxis or other complex reactions. Despite best efforts, the results of spine surgery might not heal in terms of bone, soft tissues such as skin, fascia, ligaments, and joints. Additionally, in order to achieve best possible results, spine surgery may be carried out beyond the initially planned levels and involve decompression, fusion including insertion of hardware at levels other than the original intended area of surgical interest change some portions of the procedure in order to ensure the best possible outcomes. With spine surgery and spinal fusion, there are different off label uses of instrumentation (devices, implants and hardware) as well as biological substances (bone morphogenic proteins, demineralized bone matrix) as well as using extra bone from allograft sources (i.e. cadaver bone) or autograft (iliac crest bone, ribs, or the spine itself). The patient has been given information about these practices and their inherent risks and benefits. The patient has had a chance to review all the listed information, has been given print outs detailing this information, and has had all his/her questions answered to their satisfaction. It was my pleasure to have seen and examined [Patient Name]. In our visit today we have had a chance to go over my understanding of our patient's current condition, the natural course history without intervention and various interventional options. Questions were invited and answered, and the patient wishes to proceed as outlined above. I have seen and examined the patient for 25 minutes and we have spent more than 50% of the time in repeat and detailed coun seling about the patient's condition, its natural course history without and as much as can be predicted with surgery and re-review of various surgical treatment options. In conclusion, [Patient Name] and [his/her spouse/partner] requested we proceed with the above suggested surgery and are willing to accept risks and limitations of the suggested surgery as nature of the disease process and our best attempts at treatment for the condition. Thank you again for allowing us to be part of your patient's care. Please don't hesitate to contact me if you have any further questions. OPERATIVE NARRATIVE: The patient was seen and examined in the preoperative area. All preoperative protocols were followed. Informed consent was obtained, risks and benefits of the procedure were discussed at length. Risks including bleeding infection damage to the surrounding tissue and risk of reoperation were discussed with the patient. Risk of anesthesia up to and including was discussed with the patient. These are outlined in the risk review. They were willing to accept these risks and all of the risks of surgery. The patient was given a weight- based dose of antibiotics in the form of 2 g Ancef. The patient was seen and evaluated by the anesthesia team who deemed them fit for surgery. The site was marked, the patient was willing to proceed with the procedure. The patient was transferred to the operative suite by the Department of anesthesia. They were then drifted off to sleep by the department anesthesia and GETA was performed. The patient tolerated this well. Once confirmation of lines and ventilation the patient was transferred to a [prone Wade table very carefully]. All bony prominences including wrists, elbows, axilla, chest, hips, and thighs, and feet were padded very well. Special attention was paid to the genitalia and these were padded accordingly. SCDs were placed on bilateral lower extremities and were connected. Arms were well padded and placed [on arm boards up and out in the 90/90 position]. Once in position, again we confirmed good ventilation capabilities and that lines were running appropriately. The patient's Lumbar spine was then exposed. 1010s were placed outlining the incision site. Standard alcohol was used to clean the incision site and allowed to dry. C-arm was used to biomark the patient and confirm level for incision which was marked with a skin marker. Operative briefing was performed with all teams and everyone in agreement to proceed. The patient was then prepped and draped in a normal sterile fashion. Timeout was then performed and all parties were in agreement with the procedure to be performed. Skin incision was made in an elliptical fashion over the lumbar area about 10 cm in length to allow for closure after. This allowed us to excise the stitch abscess and tract. There was no tracking deep. This was purely superficial in the subq tissue and the deep subcutaneous tissue was not involved. The tract was excised. The area was copiously irrigated with Ancef irrigant, gentamicin irrigant, Irrisept and NSS. The edges were freshened. We then proceeded to layered closure with first 0 Vicryl in the deep subcutaneous tissues. 2-0 Vicryl in the superficial subcutaneous tissues and then 2-0 Nylon in the skin in a horizontal mattress fashion. The wound edges approximated very well and everted. The wound was then cleaned with alcohol and sterilely dressed with Optifoam dressing. The patient was transferred back to their hospital bed atraumatically. [Drain continued to hold suction and was in a good position]. Patient was then awakened and extubated by the department of anesthesia having tolerated the procedure very well with no complications. They were transferred to the postoperative care unit in stable condition. Signed and authenticated by: Jun 22, 2024 8:15?PM EDT DO Bette Castillo [facility] [address] [place] [address] This document is confidential, intended only for the named recipient(s) and may contain information that is privileged or exempt from disclosure under applicable law. If you are not the intended recipient(s), you are notified that the dissemination, distribution or copying of this information is strictly prohibited. If you received this message in error, please notify the sender then delete this message.
== END 2024-06-22 18:40 ==
LOC: OR 10:30
PROVIDERS: ATTEND Orthopaedic Surgery
DX: K75.0 Abscess of liver